=== PATIENT | female | born 1950 | race Caucasian/White ===

== ENCOUNTER 2020-11-11 20:44 | Emergency (ER) | payer MEDICARE, BC ==
[2020-11-11] MEDS ORDERED: IBUPROFEN800 MG PO (23:27)
== END 2020-11-11 23:45 | disposition home or self-care (01) ==
LOC: ER1 20:44
DX: S52.501A Unspecified fracture of the lower end of right radius, initial encounter for closed fracture (principal); S52.502A Unspecified fracture of the lower end of left radius, initial encounter for closed fracture; J45.909 Unspecified asthma, uncomplicated; F17.200 Nicotine dependence, unspecified, uncomplicated; W18.39XA Other fall on same level, initial encounter; Y92.009 Unspecified place in unspecified non-institutional (private) residence as the place of occurrence of the external cause
CPT/HCPCS: 29125; 70450; 72125; 73090; 73110; 96372; 99284; J1885